=== PATIENT | female | born 2000 | race Caucasian/White ===

== ENCOUNTER 2023-08-31 13:25 | Emergency (ER) | payer OTHER ==
[2023-08-31 14:01] VITALS: BP 119/84; PULSE 94; RESP 16; TEMP 98.6; BMI 27.4
== END 2023-08-31 14:35 | disposition home or self-care (01) ==
LOC: FER 13:25
DX: R56.9 Unspecified convulsions (principal)
CPT/HCPCS: 99282-25

== ENCOUNTER 2023-09-21 10:35 | Emergency (ER) | payer OTHER ==
[2023-09-21 10:58] VITALS: BP 94/86; PULSE 98; RESP 18; TEMP 98.2; BMI 29.9
[2023-09-21] MEDS ORDERED: SODIUM CHLORIDE 1,000 ML IV ONE (11:01)
[2023-09-21 11:20] LABS: HEMOGLOBIN 13.3 G/dL (10.7-15.3); MCH 26.2 pg (25.7-33.7); MCHC 32.5 g/dl (32.0-36.0); MEAN CELL VOLUME 80.4 fl (80-96); PLATELET COUNT 445.1 10^3/uL (134-434); RDW 15.6 % (11.6-15.6); WHITE BLOOD COUNT 8.5 10^3/uL (4.0-10.8)
[2023-09-21 11:50] LABS: EPITHELIAL CELLS >50 /hpf
[2023-09-21 13:14] LABS: PLATELET ESTIMATE ADEQUATE
[2023-09-21 14:12] LABS: POTASSIUM 4.3 mmol/L (3.5-5.1)
[2023-09-21 14:14] LABS: ALBUMIN 3.4 g/dl (3.4-5.0); CALCIUM 8.7 mg/dL (8.5-10.1)
[2023-09-21 14:15] LABS: BLOOD UREA NITROGEN 13.3 mg/dL (7-18)
[2023-09-21 14:18] LABS: CREATININE 0.8 mg/dL (0.55-1.3)
[2023-09-21 14:19] LABS: BILIRUBIN,TOTAL 0.2 mg/dL (0.2-1); TOT PROT 7.3 g/dl (6.4-8.2)
== END 2023-09-21 16:00 | disposition home or self-care (01) ==
LOC: FER 10:35
PROC: 3E0337Z Introduction of Electrolytic and Water Balance Substance into Peripheral Vein, Percutaneous Approach (ICD-10-PCS; principal; 2023-09-21)
DX: R29.898 Other symptoms and signs involving the musculoskeletal system (principal)
CPT/HCPCS: 36415; 70450-TC; 80053; 81003; 81015; 83605; 84703; 85027; 93005